=== PATIENT | male | born 1975 | race Caucasian/White ===

== ENCOUNTER 2018-07-28 18:08 | Emergency (ER) | payer OTHER ==
[~2018-07-28] VITALS: Ht 177.8 cm; Wt 89.8 kg
[2018-07-28] MEDS ORDERED: NABUMETONE 750750 M1 PO (19:25)
[2018-07-28] MEDS ORDERED: NORCO 5-325 TA1 EACH PO (19:25)
[2018-07-28] MEDS ORDERED: KEFLEX500 M1 PO (19:25)
[2018-07-28 19:45] VITALS: BP 119/89
== END 2018-07-28 19:45 | disposition home or self-care (01) ==
LOC: M.ERS 18:08
DX: S61.303A Unspecified open wound of left middle finger with damage to nail, initial encounter (principal); W26.0XXA Contact with knife, initial encounter; Y93.89 Activity, other specified; Y92.89 Other specified places as the place of occurrence of the external cause; Y99.8 Other external cause status